=== PATIENT | female | born 1965 ===

== ENCOUNTER 2017-01-08 04:37 | Emergency (ER) | payer OTHER ==
[2017-01-08 04:50] VITALS: RESP 16; TEMP 97.8
[2017-01-08] MEDS ORDERED: HYDROMORPHONE HCL 2 MG/ML SOL IV ONE (05:26)
[2017-01-08] MEDS ORDERED: KETOROLAC TROMETHAMINE 30 MG/ML SOL IV ONE (05:27)
[2017-01-08] MEDS ORDERED: KETOROLAC TROMETHAMINE 30 MG/ML SOL ONE (05:32)
[2017-01-08] MEDS ORDERED: HYDROMORPHONE HCL 2 MG/ML SOL ONE (05:32)
[2017-01-08] MEDS: SODIUM CHLORIDE 0.9% FLUSH 10 ML SOL IV PRN ×2 (05:35→07:05)
[2017-01-08] MEDS ORDERED: SODIUM CHLORIDE 0.9% FLUSH 10 ML SOL IV PRN (05:46)
[2017-01-08] MEDS ORDERED: ONDANSETRON HCL 4 MG/2 ML SOL ONE (06:22)
[2017-01-08] MEDS ORDERED: ONDANSETRON HCL 4 MG/2 ML SOL IV ONE (06:25)
[2017-01-08] MEDS ORDERED: SOLUMEDROL 125 MG/2 ML 125 MG/2 ML PDS IV ONE (06:47)
[2017-01-08] MEDS ORDERED: SOLUMEDROL 125 MG/2 ML 125 MG/2 ML PDS ONE (07:00)
[2017-01-08 07:04] VITALS: BP 113/69; PULSE 84; O2SAT 99
== END 2017-01-08 07:09 | disposition home or self-care (01) | DRG 552 ==
LOC: ED 04:37
DX: M54.2 Cervicalgia (principal); G89.29 Other chronic pain; M62.838 Other muscle spasm; Z87.828 Personal history of other (healed) physical injury and trauma
CPT/HCPCS: 72125; 99285; J1170; J1885; J2405; J2930

== ENCOUNTER 2017-06-28 14:23 | Day surgery (SDC) | payer OTHER ==
[2017-06-28 15:14] VITALS: BP 101/69; PULSE 73; RESP 16; TEMP 97.3; O2SAT 96
[2017-06-28] MEDS ORDERED: BUPIVACAINE HCL 0.25% MPF 10 ML SOL INFIL ONE (15:37)
[2017-06-28] MEDS ORDERED: TRIAMCINOLONE ACETONIDE 40 MG/ML SUS ONE (15:37)
== END 2017-06-28 16:05 | disposition home or self-care (01) | DRG 552 ==
LOC: SURG 14:23
PROVIDERS: ATTEND Nurse Anesthetist, Certified Registered
DX: M54.2 Cervicalgia (principal)
CPT/HCPCS: J3300

== ENCOUNTER 2017-08-07 11:23 | Day surgery (SDC) | payer OTHER ==
[2017-08-07] MEDS ORDERED: DIAZEPAM 5 MG TAB ONE (11:39)
[2017-08-07] MEDS ORDERED: ONDANSETRON 4 MG ODT ONE (11:39)
[2017-08-07 11:49] VITALS: BP 109/74; PULSE 64; RESP 16; TEMP 97; O2SAT 97
[2017-08-07] MEDS ORDERED: BUPIVACAINE HCL 0.25% MPF 10 ML SOL INFIL ONE (12:06)
[2017-08-07] MEDS ORDERED: TRIAMCINOLONE ACETONIDE 40 MG/ML SUS ONE (12:06)
== END 2017-08-07 12:34 | disposition home or self-care (01) | DRG 556 ==
LOC: SURG 11:23
PROVIDERS: ATTEND Nurse Anesthetist, Certified Registered
DX: M79.1 Myalgia (principal)
CPT/HCPCS: A9270-GY; J3300

== ENCOUNTER 2017-09-26 11:52 | Day surgery (SDC) | payer OTHER ==
[2017-09-26] MEDS ORDERED: DIAZEPAM 5 MG TAB ONE (12:22)
[2017-09-26] MEDS ORDERED: BUPIVACAINE HCL 0.25% MPF 30 ML SOL INFIL ONE (13:14)
[2017-09-26] MEDS: MIDAZOLAM 2 MG/2 ML SOL ONE ×2 (13:29→13:39)
[2017-09-26 13:41] VITALS: RESP 16
[2017-09-26 13:57] VITALS: BP 117/78; PULSE 77; TEMP 97.3; O2SAT 98
== END 2017-09-26 14:40 | disposition home or self-care (01) ==
LOC: SURG 11:52
PROVIDERS: ATTEND Nurse Anesthetist, Certified Registered
DX: M54.2 Cervicalgia (principal); M47.892 Other spondylosis, cervical region
CPT/HCPCS: J2250; A9270-GY

== ENCOUNTER 2017-10-09 11:57 | Day surgery (SDC) | payer OTHER ==
[2017-10-09] MEDS ORDERED: LIDOCAINE HCL 2% MPF 10 ML SOL ONE (13:10)
[2017-10-09] MEDS ORDERED: BUPIVACAINE HCL 0.5% MPF 10 ML SOL ONE (13:11)
[2017-10-09] MEDS ORDERED: FENTANYL 100MCG/2ML SOL ONE (13:20)
[2017-10-09] MEDS: MIDAZOLAM 2 MG/2 ML SOL ONE ×2 (13:33→13:36)
[2017-10-09] MEDS ORDERED: SODIUM CHLORIDE 0.9% FLUSH 10 ML SOL IV ONE ×2 (13:33→13:36)
[2017-10-09 14:00] VITALS: PULSE 70; RESP 16; TEMP 98.4; O2SAT 94
[2017-10-09 15:33] VITALS: BP 123/76
== END 2017-10-09 14:36 | disposition home or self-care (01) ==
LOC: SURG 11:57
PROVIDERS: ATTEND Nurse Anesthetist, Certified Registered
DX: M12.88 Other specific arthropathies, not elsewhere classified, other specified site (principal)
CPT/HCPCS: J2250; J3010

== ENCOUNTER 2017-12-26 09:21 | Day surgery (SDC) | payer OTHER ==
[2017-12-26] MEDS ORDERED: SODIUM CHLORIDE 0.9% FLUSH 10 ML SOL IV ONE (10:44)
[2017-12-26] MEDS ORDERED: FENTANYL 100MCG/2ML SOL ONE (10:45)
[2017-12-26] MEDS ORDERED: TRIAMCINOLONE ACETONIDE 40 MG/ML SUS ONE (11:02)
[2017-12-26] MEDS ORDERED: LIDOCAINE HCL 2% MPF 10 ML SOL ONE (11:02)
[2017-12-26] MEDS ORDERED: BUPIVACAINE HCL 0.25% MPF 30 ML SOL INFIL ONE (11:03)
[2017-12-26] MEDS: MIDAZOLAM 2 MG/2 ML SOL ONE ×2 (11:15→11:24)
[2017-12-26 11:38] VITALS: RESP 16
[2017-12-26 11:56] VITALS: BP 113/66; PULSE 73; TEMP 97.4; O2SAT 96
== END 2017-12-26 12:10 | disposition home or self-care (01) ==
LOC: SURG 09:21
PROVIDERS: ATTEND Nurse Anesthetist, Certified Registered
DX: M12.88 Other specific arthropathies, not elsewhere classified, other specified site (principal)
CPT/HCPCS: J2250; J3010; J3300

== ENCOUNTER 2018-01-30 10:23 | Day surgery (SDC) | payer OTHER ==
[2018-01-30 10:55] VITALS: RESP 16; TEMP 97.6
[2018-01-30] MEDS ORDERED: TRIAMCINOLONE ACETONIDE 40 MG/ML SUS ONE (11:04)
[2018-01-30] MEDS ORDERED: BUPIVACAINE HCL 0.5% MPF 10 ML SOL ONE (11:04)
[2018-01-30 11:22] VITALS: BP 122/74; PULSE 65; O2SAT 99
== END 2018-01-30 11:24 | disposition home or self-care (01) ==
LOC: SURG 10:23
PROVIDERS: ATTEND Nurse Anesthetist, Certified Registered
DX: M79.18 Myalgia, other site (principal)
CPT/HCPCS: J3300

== ENCOUNTER 2018-02-05 08:36 | Day surgery (SDC) | payer OTHER ==
[~2018-02-05 08:36] MED LIST: LIDOCAINE HCL 1% MPF 30 SOL ONE; PROPOFOL 500 MG/50 ML EMU IV ONE
[2018-02-05 10:43] VITALS: BP 125/77; PULSE 72; RESP 20; TEMP 97; O2SAT 97
== END 2018-02-05 10:55 | disposition home or self-care (01) ==
LOC: SURG 08:36
PROVIDERS: ATTEND Surgery
DX: Z12.11 Encounter for screening for malignant neoplasm of colon (principal); Z80.0 Family history of malignant neoplasm of digestive organs
CPT/HCPCS: J2001; J2704

== ENCOUNTER 2018-08-08 12:13 | Day surgery (SDC) | payer BC, OTHER ==
[2018-08-08] MEDS ORDERED: DEXAMETHASONE SOD PHOS PF 10 MG/ML SOL IJ ONE (12:43)
[2018-08-08] MEDS ORDERED: LIDOCAINE HCL 2% MPF 10 ML SOL ONE (12:44)
[2018-08-08] MEDS ORDERED: BUPIVACAINE HCL 0.25% MPF 30 ML SOL INFIL ONE (12:44)
[2018-08-08] MEDS: MIDAZOLAM 2 MG/2 ML SOL ONE ×2 (13:02→13:14)
[2018-08-08] MEDS: FENTANYL 100MCG/2ML SOL ONE ×2 (13:02→13:20)
[2018-08-08 13:09] VITALS: RESP 16
[2018-08-08 13:42] VITALS: BP 127/78; PULSE 67; TEMP 97.3; O2SAT 93
== END 2018-08-08 14:05 | disposition home or self-care (01) ==
LOC: SURG 12:13
PROVIDERS: ATTEND Nurse Anesthetist, Certified Registered
DX: M12.88 Other specific arthropathies, not elsewhere classified, other specified site (principal)
CPT/HCPCS: J2250; J3010; J1100